=== PATIENT | female | born 2000 | race Caucasian/White ===

== ENCOUNTER 2024-10-13 02:57 | Emergency (ER) | payer SELFPAY ==
[~2024-10-13] VITALS: Ht 157.5 cm; Wt 80.0 kg
[2024-10-13 03:24] VITALS: BP 124/91; PULSE 92; RESP 15; O2SAT 94
[2024-10-13] MEDS ORDERED: OFLO5DRO LEFTEYE (04:18)
[2024-10-13] MEDS: FLUORESCEIN SODIUM 1MG/STRIP LEFTEYE ONE (04:19)
== END 2024-10-13 04:24 | disposition home or self-care (01) ==
LOC: ER 03:12
DX: S05.02XA Injury of conjunctiva and corneal abrasion without foreign body, left eye, initial encounter (principal); X58.XXXA Exposure to other specified factors, initial encounter; Y93.K1 Activity, walking an animal; Y92.89 Other specified places as the place of occurrence of the external cause; Y99.8 Other external cause status
CPT/HCPCS: 99283